=== PATIENT | female | born 1980 | race Caucasian/White ===

== ENCOUNTER 2017-04-25 20:00 | Inpatient (IN) | payer MEDICAID ==
[~2017-04-25] VITALS: Ht 165.1 cm; Wt 44.0 kg
--- NOTE | ~2017-04-25 | PA ---
Unit #: [id number] #: [id number] Patient: YOHANA SALEH [id number] [facility] [address] [place] [address] [id number] I MR#: [id number] NAME: YOHANA SALEH ROOM: P210 Age: 36 Sex: F Admission Date: 04/26/2017 : 1980 Date of Assessment: 04/26/2017 Attending Physician: Jos Dumont M.D. Admitting Physician: Jos Dumont M.D. Primary Care Physician: Generic Doctor Not In System PSYCHIATRIC ASSESSMENT DATE OF SERVICE 04/26/2017. INFORMANTS The patient, reliable; [facility], reliable; and [facility], reliable. CHIEF COMPLAINT Depression and heroin abuse. HISTORY OF PRESENT ILLNESS Yohana is a 36-year-old woman, who reports that she and her fiancee have a suicide pact with a plan to lie on the train tracks. If he backed out of the plan, she was going to get a gun from a drug dealer she has been staying with and shoot herself. She reports that she and her fiancee have been "running drugs" for a dealer and had been using heroin as well as drinking alcohol. She and her ficasandrae were both admitted to different units for chemical dependence treatment. PAST PSYCHIATRIC HISTORY The patient has no previous inpatient psychiatric care. She is not currently on psychiatric medications. FAMILY PSYCHIATRIC HISTORY The patient reports there is a family history of depression and alcoholism in her extended family, although neither of her parents were alcoholics. SOCIAL HISTORY The patient reported no significant history of childhood abuse or neglect. She has a current fiancee, who is also admitted to this facility. 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 PAST MEDICAL HISTORY The patient has hepatitis A, B, and C and chronically on low potassium. She reports a history of bulimic eating behaviors. MEDICATIONS None currently. ALLERGIES No known medication allergies. Unit #: [id number] #: [id number] Patient: YOHANA SALEH SUBSTANCE USE HISTORY As noted, the patient has been using up to 3 g of heroin daily and yesterday drank a pint of alcohol. MENTAL STATUS EXAMINATION The patient presented as a thin disheveled woman, who appeared older than her stated age. She was cooperative with the examination. Her speech was spontaneous and easily understood. Her musculoskeletal examination was calm. Her mood was depressed with a congruent affect. She was alert and fully oriented. Her memory and concentration were fair. Her thought processes were logical with no psychosis. She reported suicidal ideation with two plans and contracted for safety only in the hospital. Insight and judgment were fair. Fund of knowledge and abstraction were fair. ASSETS AND LIABILITIES The patient knows local resources and presents voluntarily for treatment. Liabilities include recent illegal drug activity, unstable housing, unstable income, and chronic drug use. ADMITTING DIAGNOSES AXIS I: Major depressive disorder, recurrent, severe, without psychotic features, F33.2; opioid dependence with withdrawal, uncomplicated, F11.23; and history of bulimia nervosa. AXIS II: No diagnosis. AXIS III: Hepatitis A, hepatitis B, and hepatitis C. AXIS IV: AXIS V: PSYCHIATRIC PLAN The patient was admitted and placed on suicide precautions and the opioid detox protocol. Celexa 20 mg daily will be added for control of depression and the patient will be provided with nutritional supplements due to weight loss. She will enroll in dual diagnosis groups and activities, and a physical examination and laboratory studies will be ordered and reviewed. TREATMENT GOALS Resolution of suicidal ideation, establishment of sobriety, improvement in insight, and improvement in coping skills. DISCHARGE PLANNING [facility] with [facility] for 28-day programing. ESTIMATED LENGTH OF STAY 5 days. Dictated by... Jos Dumont M.D. DANIELLE/alessia TD: 04/26/2017 14:04 JOB #: [id number] Unit #: [id number] #: [id number] Patient: YOHANA SALEH PSYCHIATRIC ASSESSMENT Page 1 of 1 X Jos Dumont MD X PSYCHIATRIC ASSESSMENT
--- NOTE | ~2017-04-25 | A ---
[facility] Nutrition Therapy DATE: 04/27/17 Patient: JUDY SALEH Physician: JANNETH Address: [address] Room/Bed: [address], Zip: [place] [id number] Admit Date: 04/26/17 Date of : [birth year] Height: 5 5 Weight: 96 [phone] NUTRITIONAL ASSESSMENT: REASON: LOW BMI (16.1) PATIENT ADMITTED FOR ETOH AND HEROIN DETOX, AND SI PMH: HEP A, B, & C, CHRONIC HYPOKALEMIA, HX OF BULIMIA, LIPOSUCTION X2 Anthropometrics: HT: 65", WT: 97#, BMI: 16.1 Labs: NO LABS AVAILABLE Meds: DESYREL, CELEXA, MVI, VIT B COMPLEX, DETOX PROTOCOL Assessment: PATIENT IS A 36 Y/O FEMALE ADMITTED FOR SI AND ETOH AND HEROIN DETOX. PATIENT IS CURRENTLY UNEMPLOYED, SMOKES 1/2 PPD, AND USES 3GM OF HEROIN AND DRINKS ETOH DAILY. 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 UPON ADMIT PATIENT STATED A POOR APPETITE WITH A 15# WEIGHT LOSS X LAST SEVERAL MONTHS, AND SHE HAS NOT BEEN SLEEPING (1HR/NIGHT). CURRENT PO INTAKES ARE NOT AVAILABLE AND THERE IS NO WEIGHT HX RECORDED IN [employer]. PATIENT DID NOT SCORE ANY NUTRITIONAL RISK POINTS. SHE HAS A HX OF BULIMIA AND HAS RECEIVED LIPOSUCTION X2, HOWEVER THERE ARE NO ACTIVE SYMPTOMS OF BULIMIA NOTED ATT. PATIENT IS CURRENTLY ON A REGULAR DIET WITH NO CAFFEINE, AND SHE RECEIVES ENSURE TID. THERE ARE NO SKIN ISSUES NOTED ATT. THIS RD SUSPECTS PATIENT'S WEIGHT AND APPETITE WILL STABILIZE AND POSSIBLY INCREASE FOLLOWING DETOX; HOWEVER PATIENT SHOULD BE ON PRECAUTIONS BEFORE AND AFTER MEALS D/T HER HISTORY OF BULIMIA AND HER LOW BMI. Dx: INADEQUATE ORAL INTAKE R/T PMH, DRUG USE AEB LOW BMI, SELF-REPORTED WEIGHT LOSS AND DECREASED APPETITE Intervention: REGULAR DIET, NO CAFFEINE, SUPPLEMENTS, MEDS PER MD, DETOX, PSYCH Monitoring, Evaluation and Goals: 1. ADEQUATE PO INTAKES >75% OF MEALS 2. PREVENT, CORRECT MICRO/MACRO NUTRIENT DEFICIENCIES 3. WEIGHT; PROMOTE A STEADY WEIGHT GAIN TOWARDS A HEALTHY BMI OF 19-25, PREVENT FURTHER WEIGHT LOSS MONITOR: WEIGHTS, LABS, PO/FLIUD INTAKES Recommendations: 1. CONTINUE REGULAR DIET WITH NO CAFFEINE AND ENSURE TID TOLERATED. OFFER SNACKS BETWEEN MEALS [facility] Nutrition Therapy DATE: 04/27/17 Patient: JUDY SALEH Physician: JANNETH Address: [address] Room/Bed: [id number], Zip: [place] [address] Admit Date: 04/26/17 Date of : [birth year] Height: 5 5 Weight: 96 [phone] 2. ENCOURAGE ADEQUATE PO AND FLUID INTAKES 3. OBTAIN WEIGHTS ROUTINELY (EVERY 3-4 DAYS) 4. RECOMMEND MONITORING PATIENT BEFORE AND AFTER MEALS D/T PATIENT'S HISTORY OF BULIMIA AND HER LOW BMI. MAY CONSIDER ROOM LOCKOUT FOLLOWING MEALS IF PATIENT STARTS EXHIBITING EATING DISORDER BEHAVIOR RD TO F/U PER PROTOCOL AND PRN R/T PATIENT MILD/MODERATELY COMPROMISED Respectfully, ORTIZ MEJIA, RD, LD [facility] cc: client file
--- NOTE | ~2017-04-25 | HP ---
Unit #: [id number] #: [id number] Patient: JUDY SALEH [id number] [facility] [address] [place] [address] [id number] I MR#: [id number] NAME: JUDY SALEH ROOM: P210 Age: 36 Sex: F Admission Date: 04/26/2017 : 1980 Attending Physician: Jos Dumont M.D. Admitting Physician: Jos Dumont M.D. Primary Care Physician: Generic Doctor Not In System HISTORY AND PHYSICAL HISTORY OF PRESENT ILLNESS Patient is a 36-year-old female admitted to [address] [place] [address] on 04/26/2017 for alcohol and drug abuse and suicidal ideation. PAST MEDICAL HISTORY 1. Drug abuse including heroin and alcohol. 2. Hepatitis A, B and C. 3. Hypokalemia. 4. Bulimia. 5. Suicidal ideations. PAST SURGICAL HISTORY 1. Left knee. 2. Liposuction x 2. 3. Right oophorectomy. SOCIAL HISTORY She is unemployed. She was working for her drug dealer but recently stopped. She smokes one-half pack of cigarettes daily. Drinks greater than a pint of alcohol per day and shoots three grams of heroin or more per day. FAMILY MEDICAL HISTORY Noncontributory. ALLERGIES No known drug allergies. CURRENT MEDICATIONS Patient is not on any home medications. REVIEW OF SYSTEMS CONSTITUTIONAL: No fever or chills. HEENT: Denies any sore throat, ear pain or runny nose. CARDIOVASCULAR: Denies chest pain, irregular heart rhythm or palpitations. CHEST: Denies shortness of breath or cough. No hemoptysis. GASTROINTESTINAL: Denies nausea, vomiting, diarrhea or chronic constipation. ENDOCRINE: Denies history of increased thirst or urination. No recent significant weight loss or gain. GENITOURINARY: Denies dysuria, frequency, or hematuria. SKIN: Denies any rashes. HEMATOLOGIC: Denies history of increased bleeding or bruising. Unit #: [id number] #: [id number] Patient: JUDY SALEH MUSCULOSKELETAL: Denies any hot, swollen joints. No generalized muscle pain. NEUROLOGIC: Denies problems with vision or speech. No frequent, severe headaches. No numbness, tingling or weakness in any extremities. Denies loss of bladder or bowel control. PHYSICAL EXAM GENERAL: She is awake, alert and oriented in no acute distress. VITAL SIGNS: Temperature 97.7, heart rate 83, respiration 16, blood pressure 105/62. HEIGHT: 5'5". WEIGHT: 97 pounds. SKIN: Warm and dry without rash or lesion. HEENT: Normocephalic. TMs not viewed. Oral and nasal passages clear. Conjunctivae clear. PERRLA. EOMs intact. NECK: Supple without lymphadenopathy or thyromegaly. HEART: Regular rate and rhythm without murmur. LUNGS: Clear. ABDOMEN: Soft, nontender. : Not done. EXTREMITIES: No evidence of cyanosis, clubbing or edema. Moves all without focal deficit. NEUROLOGICAL: Grossly within normal limits. Cranial Nerves: II: Visual shine are intact. III, IV AND : Extraocular movements are intact. Pupils are equal, round and reactive to light. V: Facial sensation is grossly normal. VII: Facial movements and expression are normal. VIII: Auditory acuity grossly intact. IX, X: Uvula is midline. Phonation is normal. XI: Patient shrugs shoulders and turns head normally. XII: Tongue protrudes in the midline. Sensory and Motor Function: Sensory and motor sensation is grossly normal. Motor: moves all extremities well. IMPRESSION 1. Psychiatric admission. 2. Drug abuse. 3. Hepatitis A, B & C. 4. Hypokalemia. 5. Bulimia. 6. Suicidal ideations. RECOMMENDATIONS Psychiatric per psychiatrist. MEDICAL: No contraindication to participate in facility activities. MEDICAL PROGNOSIS Good. MEDICAL CONDITION Stable. Dictated by... Unit #: [id number] #: [id number] Patient: THERESECourtney Gabriel/amy TD: 04/26/2017 23:34 JOB #: [id number] HISTORY AND PHYSICAL Page 1 of 1 X HEATHER JAY APRN X HISTORY AND PHYSICAL
--- NOTE | ~2017-04-25 | PN ---
Unit #: [id number] #: [id number] Patient: YOHANA SALEH [id number] [facility] [address] [place] [address] [id number] I MR#: [id number] NAME: YOHANA SALEH ROOM: P210 Age: 36 Sex: F Admission Date: 04/26/2017 : 1980 Attending Physician: Jos Dumont M.D. Admitting Physician: Jos Dumont M.D. Primary Care Physician: Generic Doctor Not In System [facility] PROGRESS NOTES DATE 04/27/2017 DISCUSSION Yohana continues to have mild to moderate detox symptoms today. Her mood is anxious and irritable with a congruent affect. She is alert and fully oriented with no active psychosis. She has been in contact with her fiancee who has been admitted to another unit, and they are making plans together for post discharge. She was referred to the group social worker for further details. ASSESSMENT 1. Major depression. 2. Opioid dependence. 3. Bulimia nervosa. PSYCHIATRIC PLAN Continue current treatment plan and precautions. Dictated by... Gill TavaresH/kalpesh TD: 04/28/2017 11:40 JOB #: [id number] [facility] PROGRESS NOTES Page 1 of 1 X Jos Dumont MD X PROGRESS NOTE
[2017-04-26 13:03] LABS: AMPHETAMINE NEG (NEG); BARBITURATES NEG (NEG); BENZODIAZEPINES POS (NEG); COCAINE NEG (NEG); MARIJUANA NEG (NEG); OPIATES NEG (NEG); TRICYCLIC ANTIDEPRESSANTS NEG (NEG); U METHADONE NEG (NEG)
== END 2017-04-29 11:50 | disposition home or self-care (01) | DRG 885 ==
LOC: P2S 04-26 00:22
PROVIDERS: Psychiatry & Neurology Psychiatry
PROC: HZ2ZZZZ Detoxification Services for Substance Abuse Treatment (ICD-10-PCS; principal; 2017-04-26)
DX: F33.2 Major depressive disorder, recurrent severe without psychotic features (principal); F50.2 Bulimia nervosa; R45.851 Suicidal ideations; F11.23 Opioid dependence with withdrawal; B15.9 Hepatitis A without hepatic coma; B19.10 Unspecified viral hepatitis B without hepatic coma; B19.20 Unspecified viral hepatitis C without hepatic coma
CPT/HCPCS: 80307